=== PATIENT | female | born 1950 | race Caucasian/White ===

== ENCOUNTER 2020-07-31 11:37 | Inpatient (IN) | payer BC, MEDICARE, OTHER ==
[~2020-07-31] VITALS: Ht 165.1 cm; Wt 101.0 kg
[2020-07-31] MEDS ORDERED: ALBUTEROL 90 MCG/ACT 8GM HFA INHALER INH SCH (12:00)
[2020-07-31] MEDS ORDERED: NS 500 ML IV ONE (12:00)
[2020-07-31] MEDS ORDERED: LOSA25TA14 PO (12:17)
[2020-07-31] MEDS ORDERED: DULO1CAP5 PO (12:17)
[2020-07-31] MEDS ORDERED: POTA1TAB21 PO (12:17)
[2020-07-31] MEDS ORDERED: VICT18IN2 PO (12:17)
[2020-07-31] MEDS ORDERED: VITA50005 PO (12:17)
[2020-07-31] MEDS ORDERED: DULO1CAP6 PO (12:17)
[2020-07-31] MEDS ORDERED: ALBU8.5H INH (12:17)
[2020-07-31] MEDS ORDERED: AZIT-12 PO (12:17)
[2020-07-31] MEDS ORDERED: PANT40TA29 PO (12:17)
[2020-07-31] MEDS ORDERED: ATOR1TAB21 PO (12:17)
[2020-07-31 12:23] LABS: BASO % 0.3 % (0.0-1.0); EOS % 0.2 % (0.0-3.0); HEMATOCRIT 42.6 % (36.0-47.0); HEMOGLOBIN 13.4 g/dl (12.0-15.5); LYMPH # 0.8 10^3/uL (1.5-5.0); LYMPH % 12.6 % (24.0-44.0); MEAN CORPUSCULAR HEMOGLOBIN 28.2 pg (27.0-33.0); MEAN CORPUSCULAR HGB CONC 31.5 g/dl (32.0-36.5); MEAN CORPUSCULAR VOLUME 89.5 fl (80.0-96.0); MONO # 0.4 10^3/uL (0.0-0.8); MONO % 6.8 % (0.0-5.0); NEUTROPHILS # 4.8 10^3/uL (1.5-8.5); NEUTROPHILS % 79.6 % (36.0-66.0); PLATELET COUNT, AUTOMATED 242 10^3/uL (150-450); RED BLOOD COUNT 4.76 10^6/uL (4.00-5.40); WHITE BLOOD COUNT 6.1 10^3/uL (4.0-10.0)
[2020-07-31] MEDS ORDERED: methylPREDNISolone 125MG 2ML VIAL IV ONE (12:30)
[2020-07-31] MEDS: COMBIVENT RESPIMAT 100-20MCG INHALER 4GM INH SCH ×3 (12:35→12:55)
[2020-07-31] MEDS ORDERED: SYSTOIN OU (12:39)
[2020-07-31 12:41] LABS: INR 0.94; PROTHROMBIN TIME 12.8 SECONDS (12.5-14.3)
[2020-07-31 12:42] LABS: PARTIAL THROMBOPLASTIN TIME 29.6 SECONDS (24.2-38.5)
[2020-07-31 12:44] LABS: D-DIMER QUANT 474.08 ng/ml (<500)
--- NOTE | 2020-07-31 12:45 | REP ---
INDICATION: Coronavirus workup COMPARISON: None. TECHNIQUE: Portable AP view of the chest FINDINGS: The mediastinum and cardiac silhouette are stable and within normal limits for portable technique. The lung mirza demonstrate chronic appearing changes without acute consolidation, effusion, or pneumothorax. Skeletal structures demonstrate age-related degenerative changes primarily involving the thoracic spine and left shoulder along with evidence for prior right shoulder replacement. Bilateral axillary node dissection noted. IMPRESSION: No acute cardiopulmonary process appreciated. <Electronically signed by Ed Kim > 07/31/20 [id number]
[2020-07-31 13:06] LABS: ALBUMIN 3.6 GM/DL (3.2-5.2); ALT/SGPT 40 U/L (12-78); BILIRUBIN,TOTAL 0.5 MG/DL (0.2-1.0); BLOOD UREA NITROGEN 15 MG/DL (7-18); CALCIUM LEVEL 8.9 MG/DL (8.8-10.2); CARBON DIOXIDE LEVEL 28 MEQ/L (21-32); CHLORIDE LEVEL 103 MEQ/L (98-107); CK-MB VALUE MASS < 1.0 NG/ML (<3.6); CPK CREATINE PHOSPHOKINASE 52 U/L (26-192); CREATININE FOR GFR 0.92 MG/DL (0.55-1.30); FERRITIN 58 NG/ML (8-252); GLOMERULAR FILTRATION RATE > 60.0 (>45); GLUCOSE, FASTING 115 MG/DL (70-100); LDH LACTATE DEHYDROGENASE 157 U/L (84-246); MB/CK RELATIVE INDEX 1.92 (< OR =4); NT-PRO BNP 60 PG/ML (<125); POTASSIUM SERUM 3.6 MEQ/L (3.5-5.1); SODIUM LEVEL 136 MEQ/L (136-145); TOTAL PROTEIN 8.4 GM/DL (6.4-8.2); TROPONIN I < 0.02 NG/ML (< 0.10)
[2020-07-31] MEDS ORDERED: DEXTROSE 50% 50 ML SYRINGE IV PRN (14:45)
[2020-07-31] MEDS ORDERED: GLUCOSE 4GM CHEW TABLET PO PRN (14:45)
[2020-07-31] MEDS ORDERED: GLUCAGON INJ 1MG VIAL SC PRN (14:45)
[2020-07-31] MEDS ORDERED: NS 1,000 ML IV SCH (15:00)
[2020-07-31] MEDS ORDERED: ALBUTEROL 90 MCG/ACT 8GM HFA INHALER INH PRN (15:00)
--- NOTE | 2020-07-31 15:12 | HPEPDOC ---
General Date of Admission July 31, 2020 Date of Service: Jul 31, 2020 Chief Complaint The patient is a 70-year-old female admitted with a reason for visit of Joao Positve. Source: Patient History of Present Illness Mrs. Garcia is an 70 year old female with non-insulin dependent diabetes mellitus who is here for COVID respiratory infection with exertional dyspnea. She generally stays at home with her . They do not do grocery shopping, her daughter normally brings her groceries. Other than going to [facility] for her husbands back pain 5 weeks ago, the only travel she had was to the [place] [facility] [place] her [place]-up. About 3 days after the [place] [facility] appointment, she started to have dyspnea, fatigue, cough with white sputum, change in smell and loss in taste. The symptoms started on 07/23/2020. Due to these symptoms, they went to their physician's office on 07/27/2020. She is given azithromycin and tested for COVID. She felt that the sputum production improved with the help of azithromycin. Their COVID test returned positive. She drove her to [facility]. While in the ED, she had no leukocytosis or acute findings on chest x-ray. They got her up to walk, and she desaturated down to 90% at room air. When she is resting, her oxygenation saturation is 97%. We spoke about the possible need to do chest compressions and intubation. She wants to be full code. Home Medications Scheduled Atorvastatin Calcium (Atorvastatin Calcium) 20 Mg Tablet, 20 MG PO QHS, (Reported) Azithromycin (Azithromycin) 250 Mg Tablet, 250 MG PO DAILY, (Reported) TOOK TWO TABS ON THE FIRST DAY Duloxetine Hcl (Duloxetine HCl) 60 Mg Capsule.dr, 60 MG PO DAILY, (Reported) WITH 30MG FOR A TOTAL OF 90MG DAILY Duloxetine Hcl (Duloxetine HCl) 30 Mg Capsule.dr, 30 MG PO DAILY, (Reported) WITH 60 MG FOR A TOTAL OF 90MG DAILY Ergocalciferol (Vitamin D2) (Vitamin D2) 50,000 Units Cap, 50,000 UNITS PO 1XWK, (Reported) THURS Liraglutide (Victoza 3-Rajeev) 0.6 Mg/0.1 Ml Pen.injctr, 1.8 MG PO DAILY, (Reported) Losartan Potassium (Losartan Potassium) 25 Mg Tablet, 12.5 MG PO DAILY, (Reported) Pantoprazole Sodium (Pantoprazole Sodium) 40 Mg Tablet.dr, 40 MG PO DAILY, (Reported) Potassium Chloride (Potassium Chloride) 8 Meq Tablet.er, 16 MEQ PO DAILY, (Reported) Scheduled PRN Albuterol Sulfate (Albuterol Sulfate Hfa) 8.5 Gm Hfa.aer.ad, 2 PUFFS INH QID PRN for SOB/WHEEZING, (Reported) Allergies Coded Allergies: levofloxacin (Verified Allergy, Mild, RASH, 07/31/20) enalaprilat (Verified Allergy, Unknown, unknown, 07/31/20) Past Medical History Medical History 1. Qwk-fufovvc-ruuoqsdjb diabetes mellitus 2. Hypertension 3. Hyperlipidemia Surgical History 1. Hysterectomy 2. Right shoulder surgery 3. Left knee surgery 4. Colon resection for diverticulitis 5. Bladder lift Family History Significant Family History: Noncontributory Social History * Smoker: Denies, non-smoker Alcohol: Denies Drugs: denies A-FIB/CHADSVASC A-FIB History Current/History of A-Fib/PAF?: No Review of Systems Constitutional: Reports: Chills (intermittent); Denies: Fever Eyes: Denies: Vision change ENT: Reports: Head Aches, Other Symptoms (change in smell and taste); Denies: Sore Throat Skin: Denies: Rash Pulmonary: Reports: Dyspnea (on exertion), Cough (productive with white sputum) Cardiovascular: Denies: Chest Pain Gastrointestinal: Denies: Nausea, Abdominal Pain Genitourinary: Denies: Dysuria Endocrine: Denies: Polydipsia, Polyphagia, Polyuria Neurological: Denies: Numbness Psych: Reports: Mood Normal Physical Examination General Exam: Positive: Alert, Cooperative, No Acute Distress Eye Exam: Positive: EOMI; Negative: Sclera icteric ENT Exam: Positive: Atraumatic Neck Exam: Positive: Supple Chest Exam: Positive: Clear to auscultation Heart Exam: Positive: Rate Normal, Regular Rhythm Abdomen Exam: Positive: Normal bowel sounds, Soft; Negative: Tenderness Extremity Exam: Positive: Edema Neuro Exam: Positive: Strength at 5/5 X4 ext Psych Exam: Positive: Mental status NL, Mood NL Vital Signs Vital Signs Date Time Temp Pulse Resp B/P (MAP) Pulse Ox O2 Delivery O2 Flow Rate FiO2 10/25/20 14:00 84 22 206/96 (132) 94 Room Air 07/31/20 12:14 96.8 Laboratory Data Labs 24H Laboratory Tests 2 07/31/20 12:08: Immature Granulocyte % (Auto) 0.5, Neutrophils (%) (Auto) 79.6H, Lymphocytes (%) (Auto) 12.6L, Monocytes (%) (Auto) 6.8H, Eosinophils (%) (Auto) 0.2, Basophils (%) (Auto) 0.3, Neutrophils # (Auto) 4.8, Lymphocytes # (Auto) 0.8L, Monocytes # (Auto) 0.4, Eosinophils # (Auto) 0.0, Basophils # (Auto) 0.0, Nucleated Red Blood Cells % (auto) 0.0, Prothrombin Time 12.8, Prothromb Time International Ratio 0.94, Activated Partial Thromboplast Time 29.6, D-Dimer, Quantitative 474.08, Anion Gap 5L, Glomerular Filtration Rate > 60.0, Lactic Acid Level 1.8, Calcium Level 8.9, Magnesium Level 2.0, Ferritin 58, Total Bilirubin 0.5, Aspartate Amino Transf (AST/SGOT) 31, Alanine Aminotransferase (ALT/SGPT) 40, Alkaline Phosphatase 130H, Lactate Dehydrogenase 157, Total Creatine Kinase 52, Creatine Kinase MB < 1.0, Creatine Kinase MB Relative Index 1.92, Troponin I < 0.02, C-Reactive Protein, Quantitative 0.80H, YO-Qau-P-Type Natriuretic Peptide 60, Total Protein 8.4H, Albumin 3.6, Albumin/Globulin Ratio 0.8L 07/31/20 12:42: POC pH (Misc Panel) 7.367, POC Base Excess (Misc Panel) -4.0L, POC Saturated Percent O2 (Misc) 93L, POC pO2 (Misc Panel) 67.0L, POC pCO2 (Misc Panel) 36.6, POC HCO3 (Misc Panel) 21.0L, POC Total CO2 (Misc Panel) 22.0L CBC/BMP Laboratory Tests 07/31/20 12:08 Microbiology Microbiology 07/31/20 Blood Culture, Received Pending 07/31/20 Blood Culture, Received Pending Assessment/Plan Mrs. Garcia is a 70 year old female with asthma and non-insulin dependent diabetes mellitus here with COVID respiratory infection and exertional dyspnea. She had dyspnea and productive cough with white sputum. She has on and off chills. No fever or leukocytosis. CXR does not demonstrate an acute process. When she ambulates, she desaturate down to 90%. At rest, she is at 97%. We will continue her azithromycin for another day and monitor her overnight for possible discharge tomorrow. Plan / VTE VTE Prophylaxis Ordered?: Yes Plan Plan 1. COVID positive respiratory infection -Symptoms start on 07/23/2020. About 3 days after visiting the [place] [facility]. No other travel except to [place] 5 weeks prior -Tested positive on 07/27/2020 -Has been on Azithromycin -Exertional dyspnea with desaturation to 90% -Monitor overnight 2. Non-insulin dependent diabetes mellitus -Holding Liraglutide -Sliding scale insulin and carb consistent diet 3. Hypertension -Continue Losartan 4. Asthma -Continue albuterol 5. Dyslipidemia -Atorvastatin 6. GERD -Pantoprazole 7. Anxiety/Depression -Duloxetine (90mg) 8. DVT ppx -Lovenox and SCD URIEL PHAN DO Jul 31, 2020 15:12
[2020-07-31] MEDS ORDERED: PILL CUTTER 1 EACH XX PRN (15:30)
[2020-07-31 15:37] VITALS: BP 143/78
[2020-07-31] MEDS: HumaLOG INSULIN (NovoLOG) PER UNIT SC SCH ×2 (18:49→21:00)
[2020-07-31 20:00] VITALS: BP 138/70; O2SAT 95
[2020-07-31] MEDS: ATORVASTATIN 20 MG TAB PO SCH (20:29)
[2020-07-31] MEDS: ENOXAPARIN 40MG/0.4ML SYRINGE (J1650 PER 10MG) SC SCH (20:30)
[2020-08-01] VITALS (8 sets, daily range): BP systolic 131–158; BP diastolic 64–72; O2SAT 93–97
[2020-08-01 07:12] LABS: HEMATOCRIT 36.1 % (36.0-47.0); HEMOGLOBIN 11.7 g/dl (12.0-15.5); LYMPH # 0.7 10^3/uL (1.5-5.0); LYMPH % 18.9 % (24.0-44.0); MEAN CORPUSCULAR HEMOGLOBIN 28.5 pg (27.0-33.0); MEAN CORPUSCULAR HGB CONC 32.4 g/dl (32.0-36.5); MONO # 0.3 10^3/uL (0.0-0.8); MONO % 8.2 % (0.0-5.0); NEUTROPHILS # 2.6 10^3/uL (1.5-8.5); NEUTROPHILS % 72.6 % (36.0-66.0); PLATELET COUNT, AUTOMATED 236 10^3/uL (150-450); WHITE BLOOD COUNT 3.6 10^3/uL (4.0-10.0)
[2020-08-01 07:48] LABS: BLOOD UREA NITROGEN 15 MG/DL (7-18); CALCIUM LEVEL 8.4 MG/DL (8.8-10.2); CARBON DIOXIDE LEVEL 26 MEQ/L (21-32); CHLORIDE LEVEL 107 MEQ/L (98-107); CREATININE FOR GFR 0.72 MG/DL (0.55-1.30); GLOMERULAR FILTRATION RATE > 60.0 (>45); GLUCOSE, FASTING 146 MG/DL (70-100); POTASSIUM SERUM 3.9 MEQ/L (3.5-5.1); SODIUM LEVEL 138 MEQ/L (136-145)
[2020-08-01 08:30] LABS: C REACTIVE PROTEIN QUANTITATIV 1.14 MG/DL (0.00-0.30)
[2020-08-01] MEDS: dexameTHASONE 4 MG/ML 1ML VIAL (J1100 PER 1MG) IV SCH (08:48)
[2020-08-01] MEDS: HumaLOG INSULIN (NovoLOG) PER UNIT SC SCH ×4 (08:48→20:55)
[2020-08-01] MEDS: DULoxetine 30 MG CAP (CYMBALTA) PO SCH (08:49)
[2020-08-01] MEDS: PANTOPRAZOLE 40MG TAB (PROTONIX) PO SCH (08:49)
[2020-08-01] MEDS: LOSARTAN 25 MG TAB PO SCH (08:51)
[2020-08-01] MEDS ORDERED: AZITHROMYCIN 250MG TABLET PO SCH (09:00)
[2020-08-01] MEDS: ASCORBIC ACID 250 MG TAB PO SCH (09:04)
[2020-08-01] MEDS: ZINC SULFATE 220 MG CAP PO SCH ×2 (09:04→20:54)
--- NOTE | 2020-08-01 10:25 | REP ---
INDICATION: covid -19, dyspnea with exertion. COMPARISON: July 31, 2020.. TECHNIQUE: Portable AP sitting view. FINDINGS: There are surgical clips in the axillary soft tissues bilaterally. 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 Thoracic aorta is tortuous. These findings are unchanged. Heart is not enlarged. Pulmonary vasculature is not increased. The pleural angles are sharp. No infiltrate is seen. IMPRESSION: No active cardiopulmonary disease seen. <Electronically signed by Joe Sloan > 08/01/20 1028
[2020-08-01 12:07] LABS: HEPATITIS B SURFACE ANTIGEN NEGATIVE (NEGATIVE)
[2020-08-01 12:36] LABS: HIV 1&2 SCREEN CENTAUR NEGATIVE (NEGATIVE)
--- NOTE | 2020-08-01 13:30 | ECGEPIP ---
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 Electronically Signed on 08-01-2020 13:30:01 EDT by Jerzy Jay
[2020-08-01] MEDS: PERCOCET 5MG/325MG TAB PO ONE ×2 (15:00→17:21)
--- NOTE | 2020-08-01 18:46 | IPNPDOC ---
Text Note Date of Service The patient was seen on 08/01/20. NOTE Subjective:Mrs. Garcia is a 70 year old female with past medical history of diabetes mellitus nyt-ifshurl-fnluxpxke, asthma, hypertension, dyslipidemia presented to the emergency department with symptoms of shortness of breath on exertion, productive cough. She was having fatigue, shortness of breath since 10days went to PCP for the same symptoms got her covid testing and was started on antibiotic and albuterol. She continued to have symptoms and her covid test came positive and was brought to hospital. Patient seen at bedside on 08/01/2020. She reports to have 4 bowel movements overnight semisolid stool, no blood or mucus. She reports having mild headache in the frontal and temporal region(better than yesterday). She reports her shortness of breath has been improved, she still has cough and bringing up small amount cream-colored sputum with no blood. She denies having any chest pain, abdominal pain, dysuria. Overnight her saturation dropped to 85% and she was put on 2 L of oxygen. Objective: General: Patient is awake, alert, oriented times three, laying in bed , no apparent distress. Eyes: Conjunctiva clear, pupils equal round and reactive to light and accommodation. ENT: Hearing Bilateral normal. No nasal deviation, oropharynx clear with no lesions/erythema. Neck: supple, no masses, trachea midline, no masses appreciated. Cardiovascular: S1, S2, normal rhythm, no murmur, rub, or gallop. Respiratory: Mild Crackles are heard in bilateral lung mirza. No rhonchi, wheezes or rubs appreciated. Overnight she had her oxygen saturation dropped to mid-80s and was put on 2 L of oxygen. Today morning when I examined her she was not on any oxygen and was able to speak in full sentences without any difficulty. Abdomen: Soft, bowel sounds positive, no bruits. No tenderness on palpation. Noted a surgical scar on the right side of umbilicus extending up to the lower abdomen. Extremities: No clubbing or cyanosis. No edema noted in lower extremities. Central nervous system (SCRUBBER MACHINE TENDER): Awake, alert and fully oriented. Cranial nerves III-XII grossly intact. Motor: Strength normal, patient moves all extremities. Skin: No rashes, lesions, ulcerations, subcutaneous nodules or induration. Assessment: Mrs. Garcia is a 70 year old female with past medical history of diabetes rula itus dac-zwoqska-ncrymzhrm, asthma, hypertension, dyslipidemia presented to the emergency department with symptoms of shortness of breath on exertion, productive cough and tested positive for Covid-19 concerning for Covid 19 respiratory infection. Plan: 1. Covid - 19 positive respiratory infection: Patient reports her symptoms started on 07/23/2020, she was tested for Covid on 07/25/2020 when she went the urgent care with shortness of breath, nasal congestion. At that point of time they thought she was having acute sinusitis and prescribed her azithromycin. Today is day#7 of azithromycin. Will stop azithromycin. She was desaturating to mid-80s and was on oxygen of 2 L overnight. She was not on any oxygen when I was talking to her and was able to speak in full sentences. Will start her on Decadron 6 mg IV and will continue for 5-7 days. Repeat a chest x-ray showed no acute changes as earlier. Will monitor her inflammatory markers, and her oxygen requirement. 2. Diarrhea: Most likely her diarrhea cause is due to antibiotic use [azithromycin]. Will stop azithromycin. If diarrhea doesn't improve we will then do a GI panel. 3. Hypertension: Continue losartan. 4. Diabetes mellitus type 2 On sliding scale insulin On Carb consistent diet. 5. Asthma: Will continue albuterol. 6. Dyslipidemia Will continue atorvastatin. 7. GERD: Continue pantoprazole. 8. Anxiety/depression: Continue on duloxetine. 9. DVT prophylaxis: Lovenox and teds and sequentials. Disposition: Will continue to monitor her oxygen level is and her symptoms over time. With clinical improvement will try to discharge her. VS,Fishbone, I+O VS, Fishbone, I+O Laboratory Tests 08/01/20 06:55 Vital Signs Date Time Temp Pulse Resp B/P (MAP) Pulse Ox O2 Delivery O2 Flow Rate FiO2 08/01/20 13:37 96.8 90 19 158/72 (100) 96 Room Air 08/01/20 04:00 2.0 I&O- Last 24 Hours up to 6 AM 08/01/20 05:59 Intake Total 620 ml Balance 620 ml Kevon Capone MD Aug 01, 2020 16:01
[2020-08-01] MEDS: ATORVASTATIN 20 MG TAB PO SCH (20:54)
[2020-08-01] MEDS: ENOXAPARIN 40MG/0.4ML SYRINGE (J1650 PER 10MG) SC SCH (20:55)
[2020-08-01] MEDS ORDERED: RAMELTEON 8 MG TAB (ROZEREM) PO PRN (21:45)
[2020-08-02] VITALS: O2SAT 93
[2020-08-02 04:00] VITALS: O2SAT 96
[2020-08-02 06:00] VITALS: BP 133/70
[2020-08-02 07:23] LABS: BASO % 0.1 % (0.0-1.0); HEMATOCRIT 36.1 % (36.0-47.0); HEMOGLOBIN 11.8 g/dl (12.0-15.5); LYMPH # 1.2 10^3/uL (1.5-5.0); LYMPH % 12.6 % (24.0-44.0); MEAN CORPUSCULAR HEMOGLOBIN 28.9 pg (27.0-33.0); MEAN CORPUSCULAR HGB CONC 32.7 g/dl (32.0-36.5); MEAN CORPUSCULAR VOLUME 88.5 fl (80.0-96.0); MONO # 0.6 10^3/uL (0.0-0.8); MONO % 6.6 % (0.0-5.0); NEUTROPHILS # 7.7 10^3/uL (1.5-8.5); NEUTROPHILS % 80.5 % (36.0-66.0); PLATELET COUNT, AUTOMATED 232 10^3/uL (150-450); RED BLOOD COUNT 4.08 10^6/uL (4.00-5.40); WHITE BLOOD COUNT 9.6 10^3/uL (4.0-10.0)
[2020-08-02 07:53] LABS: BLOOD UREA NITROGEN 21 MG/DL (7-18); CALCIUM LEVEL 8.2 MG/DL (8.8-10.2); CARBON DIOXIDE LEVEL 27 MEQ/L (21-32); CHLORIDE LEVEL 107 MEQ/L (98-107); CREATININE FOR GFR 0.74 MG/DL (0.55-1.30); GLOMERULAR FILTRATION RATE > 60.0 (>45); GLUCOSE, FASTING 109 MG/DL (70-100); POTASSIUM SERUM 3.4 MEQ/L (3.5-5.1); SODIUM LEVEL 140 MEQ/L (136-145)
[2020-08-02 08:00] VITALS: O2SAT 97
[2020-08-02] MEDS: DULoxetine 30 MG CAP (CYMBALTA) PO SCH (08:39)
[2020-08-02] MEDS: PANTOPRAZOLE 40MG TAB (PROTONIX) PO SCH (08:39)
[2020-08-02] MEDS: ASCORBIC ACID 250 MG TAB PO SCH (08:39)
[2020-08-02] MEDS: ZINC SULFATE 220 MG CAP PO SCH (08:39)
[2020-08-02 08:44] VITALS: BP 156/74
[2020-08-02] MEDS: dexameTHASONE 4 MG/ML 1ML VIAL (J1100 PER 1MG) IV SCH (08:44)
[2020-08-02] MEDS: LOSARTAN 25 MG TAB PO SCH (08:44)
[2020-08-02] MEDS: HumaLOG INSULIN (NovoLOG) PER UNIT SC SCH ×2 (08:45→11:48)
--- NOTE | 2020-08-02 09:00 | ECGEPIP ---
[facility] - ED Test Date: 2020-07-31 Pat Name: LEENA SERRATO Department: Room: - Gender: Female Spare Hand: : 1950 Requested By: Trev Velez Order Number: [id number] Reading MD: Jojo Sow Measurements Intervals [place] Rate: 83 P: 44 [place]: 171 QRS: -20 QRSD: 110 T: 126 QT: 401 QTc: 472 Interpretive Statements SINUS RHYTHM WITH OCCASIONAL SUPRAVENTRICULAR PREMATURE COMPLEXES NONSPECIFIC ST & T-WAVE ABNORMALITY baseline artifact may affect interpretation DELAYED R PROGRESSION NO PRIOR Electronically Signed on 08-02-2020 9:00:12 EDT by Jojo Sow
[2020-08-02] MEDS ORDERED: ASCO250T20 PO (11:10)
[2020-08-02] MEDS ORDERED: PRED20TA PO (11:10)
--- NOTE | 2020-08-02 16:18 | DS.PDOC ---
Discharge Summary General Date of Admission Aug 01, 2020 at 15:36 Date of Discharge Aug 02, 2020 at 12:00 Attending Physician: GIN VAZQUEZ MD Discharge Summary PROCEDURES PERFORMED DURING STAY: None. ADMITTING DIAGNOSES: 1. Covid 19 2. Diabetes mellitus wae-osxhqxz-zmrhxwcia 3. Hypertension 4. Hyperlipidemia DISCHARGE DIAGNOSES: 1. Diabetes mellitus bxm-tohepuw-ewrkmwtcn 2. Hypertension 3. Hyperlipidemia COMPLICATIONS/CHIEF COMPLAINT: Covid19 Dyspnea On Exertion. HISTORY OF PRESENT ILLNESS: 66-year-old female presented to the emergency department with shortness of breath on exertion, she was tested positive for Covid 19. In the emergency department she had no leukocytosis or acute findings of chest x-ray. The walker to walk and he desaturated down to 90s on room air. She was saturating at 97% while resting. She was admitted to the hospital for Covid floor. HOSPITAL COURSE: During her hospitalization course the first night her saturations dropped to mid-80s and was on 2 L of oxygen overnight. She had few bowel movements after admission. She had normal temperature. She had cough and clear colorless sputum, no blood. The next day she was on room air saturating at 95 and about. Her antibiotic which she was on prior to admission-azithromycin which was prescribed by PCP, which was stopped and her diarrhea improved. She had no adverse event the next night. DISCHARGE MEDICATIONS: Please see below. ALLERGIES: Please see below. PHYSICAL EXAMINATION ON DISCHARGE: VITAL SIGNS: Please see below. General: Patient is awake, alert, oriented times three, laying in bed , no apparent distress. Eyes: Conjunctiva clear, pupils equal round and reactive to light and accommodation. ENT: Hearing Bilateral normal. No nasal deviation, oropharynx clear with no lesions/erythema. Neck: supple, no masses, trachea midline, no masses appreciated. Cardiovascular: S1, S2, normal rhythm, no murmur, rub, or gallop. Respiratory: Mild crackles on the right lower lobe. Normal breath sounds heard on the left side. Abdomen: Soft, bowel sounds positive, no bruits. No tenderness on palpation. Noted a surgical scar on the right side of umbilicus extending up to the lower abdomen. Extremities: No clubbing or cyanosis. No edema noted in lower extremities. Central nervous system (POULTRY OFFAL ICER): Awake, alert and fully oriented. Cranial nerves III-XII grossly intact. Motor: Strength normal, patient moves all extremities. Skin: No rashes, lesions, ulcerations, subcutaneous nodules or induration. LABORATORY DATA: Please see below. IMAGING: Chest x-ray on 07/31/2020: Reported as no acute cardiopulmonary processes appreciated. Chest x-ray on 08/01/2020: Reported as no acute cardiopulmonary disease. PROGNOSIS: Good ACTIVITY: As tolerated. DIET: Regular diet DISCHARGE PLAN: Follow with your PCP in 3-5 days DISPOSITION: 01 Home, Self-Care. DISCHARGE INSTRUCTIONS: 1. Continue taking prednisone 20 mg twice a day for 3 days. 2. Continue taking vitamin C for about one month. ITEMS TO FOLLOWUP ON ON OUTPATIENT: 1. Follow-up with your PCP in 3-5 days. DISCHARGE CONDITION: Stable. TIME SPENT ON DISCHARGE: Greater than 30 minutes. Vital Signs/I&Os Vital Signs Date Time Temp Pulse Resp B/P (MAP) Pulse Ox O2 Delivery O2 Flow Rate FiO2 08/02/20 08:44 156/74 08/02/20 08:00 97 Room Air 08/02/20 06:00 97.3 85 18 08/01/20 04:00 2.0 I&O- Last 24 Hours up to 6 AM 08/02/20 06:00 Intake Total 1260 ml Output Total 0 ml Balance 1260 ml Laboratory Data Labs 24H Laboratory Tests 2 08/01/20 17:16: Bedside Glucose (Misc Panel) 184H 08/01/20 20:51: Bedside Glucose (Misc Panel) 176H 08/02/20 07:11: Immature Granulocyte % (Auto) 0.2, Neutrophils (%) (Auto) 80.5H, Lymphocytes (%) (Auto) 12.6L, Monocytes (%) (Auto) 6.6H, Eosinophils (%) (Auto) 0.0, Basophils (%) (Auto) 0.1, Neutrophils # (Auto) 7.7, Lymphocytes # (Auto) 1.2L, Monocytes # (Auto) 0.6, Eosinophils # (Auto) 0.0, Basophils # (Auto) 0.0, Nucleated Red Blood Cells % (auto) 0.0, Anion Gap 6L, Glomerular Filtration Rate > 60.0, Cleve cium Level 8.2L, Magnesium Level 2.0 08/02/20 11:43: Bedside Glucose (Misc Panel) 136H CBC/BMP Laboratory Tests 08/02/20 07:11 FSBS Laboratory Tests Test 10/26/20 17:16 08/01/20 20:51 08/02/20 11:43 Range/Units Bedside Glucose (Misc Panel) 184 176 136 80-115 MG/DL Microbiology Microbiology 07/31/20 Blood Culture - Preliminary, Resulted No Growth after 48 hours. All Specime... 07/31/20 Blood Culture - Preliminary, Resulted No Growth after 48 hours. All Specime... Discharge Medications Scheduled Ascorbic Acid (Vitamin C) 250 Mg Tablet, 250 MG PO DAILY Atorvastatin Calcium (Atorvastatin Calcium) 20 Mg Tablet, 20 MG PO QHS, (Reported) Duloxetine Hcl (Duloxetine HCl) 60 Mg Capsule.dr, 60 MG PO DAILY, (Reported) WITH 30MG FOR A TOTAL OF 90MG DAILY Ergocalciferol (Vitamin D2) (Vitamin D2) 50,000 Units Cap, 50,000 UNITS PO 1XWK, (Reported) THURS Liraglutide (Victoza 3-Rajeev) 0.6 Mg/0.1 Ml Pen.injctr, 1.8 MG PO DAILY, (Reported) Losartan Potassium (Losartan Potassium) 25 Mg Tablet, 12.5 MG PO DAILY, (Reported) Pantoprazole Sodium (Pantoprazole Sodium) 40 Mg Tablet.dr, 40 MG PO DAILY, (Reported) Potassium Chloride (Potassium Chloride) 8 Meq Tablet.er, 16 MEQ PO DAILY, (Reported) Prednisone (Prednisone) 20 Mg Tablet, 20 MG PO BID Scheduled PRN Albuterol Sulfate (Albuterol Sulfate Hfa) 8.5 Gm Hfa.aer.ad, 2 PUFFS INH QID PRN for SOB/WHEEZING, (Reported) Allergies Coded Allergies: levofloxacin (Verified Allergy, Mild, RASH, 07/31/20) enalaprilat (Verified Allergy, Unknown, unknown, 07/31/20) Kevon Capone MD Aug 02, 2020 13:39
== END 2020-08-02 12:45 | disposition home or self-care (01) | DRG 179 ==
LOC: M ED 11:37 → EEVIPCON 11:38 → M ED INP 11:38 → ENRESERV 14:53 → M 4MAIN 16:00 → OBSVTOIN 08-01 15:36
PROVIDERS: ADMIT Internal Medicine; ATTEND Internal Medicine
DX: U07.1 COVID-19 (principal); J45.909 Unspecified asthma, uncomplicated; E11.9 Type 2 diabetes mellitus without complications; I10 Essential (primary) hypertension; R19.7 Diarrhea, unspecified; E78.5 Hyperlipidemia, unspecified; Z79.899 Other long term (current) drug therapy; Z88.8 Allergy status to other drugs, medicaments and biological substances; K21.9 Gastro-esophageal reflux disease without esophagitis; F41.9 Anxiety disorder, unspecified; F32.9 Major depressive disorder, single episode, unspecified

== ENCOUNTER → 2024-11-13 | Outpatient (REF) | payer MEDICARE, OTHER, BC ==
[~2024-11-13] MED LIST: ALBU8.5H INH; ASCO250T20 PO; ATOR1TAB21 PO; AZIT-12 PO; DULO1CAP5 PO; DULO1CAP6 PO; ERGO500029 PO; LOSA25TA13 PO; PANT40TA29 PO; POTA1TAB21 PO; PRED20TA PO; SYSTOIN OU; VICT18IN2 PO
== END ==
LOC: M SFHCDERM 15:40
PROVIDERS: ATTEND Nurse Practitioner Family
DX: L72.0 Epidermal cyst (principal)